=== PATIENT | female | born 2000 | race Caucasian/White ===

== ENCOUNTER 2021-06-07 20:32 | Emergency (ER) | payer OTHER ==
[~2021-06-07 20:32] MED LIST: ASCORBIC ACID500 MG PO; AUGMENTIN 875-1 EACH PO; FLUOXETINE HCL20 MG PO; MACROBID100 MG PO
[2021-06-07 23:09] LABS: BASOPHIL 0.5 % (0-2); EOSINOPHIL 0.2 % (0-5); HCT 41.4 % (37.0-47.0); LYMPHOCYTE 11.6 % (15-48); MCH 31.8 pg (25.0-31.0); MCHC 33.8 g/dL (32.0-36.0); MCV 94.1 fL (78.0-100.0); MONOCYTE 6.4 % (0-12); MPV 10.2 fL (6.0-9.5); NRBC 0; PLT 251 K/uL (150-400); RDW 12.4 % (11.5-14.0); WBC 10.1 K/uL (4.0-10.5)
[2021-06-07 23:10] LABS: BILIRUBIN NEGATIVE (NEGATIVE); BLOOD NEGATIVE Ery/uL (NEGATIVE); CLARITY CLEAR (CLEAR); COLOR YELLOW (YELLOW); GLUCOSE (U) NORMAL (NORMAL); LEUKOCYTES NEGATIVE Leu/uL (NEGATIVE); NITRITE NEGATIVE (NEGATIVE); PROTEIN NEGATIVE (NEGATIVE); SPECIFIC GRAVITY >=1.030 (1.001-1.030); UROBILINOGEN 0.2 mg/dL (0.2-1.0)
[2021-06-07 23:25] LABS: ALBUMIN 4.4 g/dL (3.4-5.0); BILIRUBIN - TOTAL 0.6 mg/dL (0.2-1.0); BUN/CREAT RATIO (CALC) 16.9 RATIO; CREATININE 0.65 mg/dL (0.51-0.95); GLOBULIN (CALCULATION) 3.1 g/dL; POTASSIUM 3.5 mmol/L (3.5-5.1); TOTAL PROTEIN 7.5 g/dL (6.4-8.2)
== END 2021-06-07 23:59 | disposition home or self-care (01) ==
LOC: FER 20:32
PROVIDERS: Emergency Medicine
DX: K59.00 Constipation, unspecified (principal); K64.4 Residual hemorrhoidal skin tags
CPT/HCPCS: 36415; 80053; 81003; 83690; 85025; 99284